=== PATIENT | female | born 1940 | race Caucasian/White ===

== ENCOUNTER → 2017-03-21 | Outpatient (CLI) | payer MEDICARE, OTHER ==
--- NOTE | 2017-03-22 08:14 | RADONC ---
RADIATION ONCOLOGY FOLLOWUP NOTE DATE: 03/21/2017 CHART NUMBER: [id number] DIAGNOSIS: Right breast cancer STAGE: II A, T2N0M0. ECOG performance status zero. FOLLOWUP NOTE: Ms. Huynh is a very pleasant 76-year-old white female with the diagnosis of a stage II A, T2N0M0 moderately differentiated infiltrating ductal carcinoma of the right breast who is presenting to us today for routine followup visit 2 years post completion of external beam radiation therapy. The patient presents today reporting that she is doing quite well with no complaints at this time related to her radiation therapy or disease. She has no breast or bone pain. REVIEW OF SYSTEMS: The patient's review of systems is noncontributory. Denies nausea, vomiting, fevers, chills, night sweats, diplopia, headaches, anxiety or depression, anorexia, weight loss, visual disturbances, chest pain, urinary or bowel difficulties, bone pain, or neurological problems. PHYSICAL EXAMINATION: The patient is a well-developed, well-nourished, 76-year-old female in no acute distress. HEENT exam is normocephalic, atraumatic. Extraocular movements are intact. There is no palpable cervical, supraclavicular, infraclavicular, axillary, or inguinal lymphadenopathy present. Lungs are clear to auscultation and percussion. Heart has a regular rate and rhythm. Abdomen is benign with no hepatosplenomegaly, masses, or tenderness. Breast examination reveals no masses or discharge bilaterally. Skeletal examination reveals no tenderness to pressure or percussion of the bony skeleton. Extremities reveal no clubbing, cyanosis, or edema. Neurologic exam is grossly intact, as is the remainder of the physical examination. ASSESSMENT: The patient is clinically doing quite well and at her request is being discharged from our followup except on a p.r.n. basis. She will continue her follow up with her other physicians in the meantime. cc: MD Josey Etienne MD Steven Lyndaker, MD MTDD
== END ==
LOC: M ONCR 14:06
PROVIDERS: ATTEND Radiology Radiation Oncology
DX: C50.211 Malignant neoplasm of upper-inner quadrant of right female breast (principal)